=== PATIENT | female | born 1950 | race Caucasian/White ===

== ENCOUNTER 2023-10-11 06:34 | Day surgery (SDC) | payer MEDICARE, OTHER, SELFPAY ==
[2023-10-11 10:00] VITALS: BMI 22.4
[2023-10-11 10:05] VITALS: BP 135/79
[2023-10-11 10:11] VITALS: BMI 22.4
[2023-10-11 12:10] VITALS: BP 149/94
[2023-10-11 12:15] VITALS: BP 157/91
[2023-10-11 12:30] VITALS: BP 170/92
[2023-10-11 12:45] VITALS: BP 150/75
== END 2023-10-11 13:04 | disposition home or self-care (01) ==
LOC: GI 06:34
PROVIDERS: ATTENDING PHYSICIAN Internal Medicine Gastroenterology
DX: Z12.11 Encounter for screening for malignant neoplasm of colon (principal); K64.0 First degree hemorrhoids; Q43.8 Other specified congenital malformations of intestine; D12.2 Benign neoplasm of ascending colon; Z86.010 Personal history of colon polyps; Z80.0 Family history of malignant neoplasm of digestive organs
CPT/HCPCS: 45385; 88305

== ENCOUNTER → 2024-06-25 10:06 | Outpatient (REF) | payer MEDICARE, OTHER, SELFPAY | LOC: WDC 10:06 | PROVIDERS: ATTENDING PHYSICIAN Physician Assistant Medical | DX: Z12.31 Encounter for screening mammogram for malignant neoplasm of breast (principal) | CPT/HCPCS: 77063; 77067 ==

== ENCOUNTER → 2024-12-11 08:51 | Outpatient (REF) | payer MEDICARE, OTHER, SELFPAY ==
[2024-12-11 10:19] LABS: % Basophils 1.1 % (0-2); % Lymphocytes 42.4 % (20.5-51.1); % Monocytes 10.4 % (1.7-9.3); % Neutrophils 44.1 % (42.2-75.2); Absolute Basophils 0.1 10^3/uL (0-0.2); Absolute Eosinophils 0.1 10^3/uL (0-0.7); Absolute Lymphocytes 1.9 10^3/uL (1.2-3.4); Absolute Monocytes 0.5 10^3/uL (0.1-0.6); Absolute Neutrophils 1.9 10^3/uL (1.4-6.5); Hematocrit 43.1 % (37.0-47.0); Hemoglobin 14.6 g/dL (12.0-16.0); Mean Corp Hgb Conc. 33.9 g/dL (33.0-37.0); Mean Corpuscular Hgb 31.8 pg (27.0-31.0); Mean Corpuscular Volume 93.9 fL (81.0-99.0); Mean Platelet Volume 9.8 fL (7.4-10.4); Nucleated Red Blood Cells % 0 %; Platelet Count 257 10^3/uL (130-400); Red Blood Cell Count 4.59 10^6/uL (4.20-5.40); Red Cell Dist. Width 12.9 % (11.5-14.5); White Blood Cell Count 4.4 10^3/uL (4.8-10.8)
[2024-12-11 10:59] LABS: ALT (SGPT) 23 U/L (0-35); AST (SGOT) 29 U/L (14-36); Albumin 4.2 g/dl (3.5-5.0); Alkaline Phosphatase 72 U/L (38-126); Blood Urea Nitrogen 16 mg/dl (7-17); Calcium 9.8 mg/dl (8.4-10.2); Carbon Dioxide 31 mmol/L (22-30); Chloride 102 mmol/L (98-107); Glucose 86 mg/dl (70-99); Potassium 4.7 mmol/L (3.5-5.1); Sodium 136 mmol/L (135-145); Total Bilirubin 0.6 mg/dl (0.2-1.3); Total Cholesterol 209 mg/dl (50-199); Total Protein 7.2 g/dl (6.3-8.2); Triglyceride 78 mg/dl (10-149); Very Low Density Lipoprotein 15 mg/dl (0-30); eGFR > 60.00
[2024-12-11 11:09] LABS: HDL Cholesterol 118 mg/dl; LDL Cholesterol, Calculated 76 mg/dl
[2024-12-11 11:27] LABS: TSH 1.12 uIU/ml (0.47-4.68)
== END ==
LOC: RAD 08:51
PROVIDERS: ATTENDING PHYSICIAN Internal Medicine
DX: R68.89 Other general symptoms and signs (principal); H81.10 Benign paroxysmal vertigo, unspecified ear; H65.92 Unspecified nonsuppurative otitis media, left ear; M25.512 Pain in left shoulder; I10 Essential (primary) hypertension; E78.5 Hyperlipidemia, unspecified
CPT/HCPCS: 36415; 73000; 80053; 80061; 84443; 85025; 86618

== ENCOUNTER → 2025-07-01 11:15 | Outpatient (REF) | payer MEDICARE, OTHER, SELFPAY | LOC: WDC 11:15 | PROVIDERS: ATTENDING PHYSICIAN Physician Assistant Medical | DX: Z12.31 Encounter for screening mammogram for malignant neoplasm of breast (principal) | CPT/HCPCS: 77063; 77067 ==